=== PATIENT | female | born 1975 | race Caucasian/White ===

== ENCOUNTER 2018-06-27 08:31 | Outpatient (CLI) | payer OTHER | END 2018-06-27 08:42 | disposition home or self-care (01) | LOC: LAB 08:31 | DX: E11.8 Type 2 diabetes mellitus with unspecified complications (principal); M15.8 Other polyosteoarthritis; I10 Essential (primary) hypertension ==

== ENCOUNTER 2018-10-21 09:28 | Outpatient (CLI) | payer OTHER | END 2018-10-21 09:31 | disposition home or self-care (01) | LOC: MAMO-SONO 09:28 | DX: Z12.31 Encounter for screening mammogram for malignant neoplasm of breast (principal); N60.21 Fibroadenosis of right breast; N60.22 Fibroadenosis of left breast ==

== ENCOUNTER 2019-02-07 10:02 | Outpatient (CLI) | payer OTHER | END 2019-02-07 13:01 | disposition home or self-care (01) | LOC: LAB 10:02 | DX: N39.0 Urinary tract infection, site not specified (principal); D64.89 Other specified anemias; Z13.1 Encounter for screening for diabetes mellitus; Z13.220 Encounter for screening for lipoid disorders; N95.1 Menopausal and female climacteric states; R97.0 Elevated carcinoembryonic antigen [CEA]; R97.1 Elevated cancer antigen 125 [CA 125]; E55.9 Vitamin D deficiency, unspecified; D51.3 Other dietary vitamin B12 deficiency anemia ==

== ENCOUNTER 2019-02-10 07:57 | Outpatient (CLI) | payer OTHER | END 2019-02-10 08:23 | disposition home or self-care (01) | LOC: SONOGRAMA 07:57 | DX: R10.13 Epigastric pain (principal); N85.00 Endometrial hyperplasia, unspecified; E04.8 Other specified nontoxic goiter ==

== ENCOUNTER → 2020-05-28 10:16 | Outpatient (CLI) | payer OTHER | END | disposition home or self-care (01) | LOC: LAB 10:16 | PROVIDERS: ATTEND General Practice | DX: I10 Essential (primary) hypertension (principal); E11.8 Type 2 diabetes mellitus with unspecified complications ==

== ENCOUNTER 2021-05-23 07:43 | Outpatient (CLI) | payer OTHER | END 2021-05-23 07:45 | disposition home or self-care (01) | LOC: LAB 07:43 | PROVIDERS: ATTEND General Practice | DX: E11.69 Type 2 diabetes mellitus with other specified complication (principal); I10 Essential (primary) hypertension ==

== ENCOUNTER → 2021-06-30 08:44 | Outpatient (CLI) | payer OTHER | END | disposition home or self-care (01) | LOC: LAB 08:44 | PROVIDERS: ATTEND Obstetrics & Gynecology Obstetrics | DX: R74.01 Elevation of levels of liver transaminase levels (principal); R97.8 Other abnormal tumor markers; O02.81 Inappropriate change in quantitative human chorionic gonadotropin (hCG) in early pregnancy; C56.9 Malignant neoplasm of unspecified ovary; Z13.1 Encounter for screening for diabetes mellitus ==